=== PATIENT | female | born 1975 | race Caucasian/White ===

== ENCOUNTER → 2019-06-18 | Outpatient (CLI) | payer OTHER ==
--- NOTE | 2019-06-19 14:06 | RADIOLOGY REPORT (SQ) ---
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 RADIONUCLIDE AND DOSE: 11.3 mCi F18 FDG The route of agent administration: Intravenous FASTING BLOOD SUGAR: 88 mg/dl CONTRAST TYPE AND DOSE: No CT contrast given. TECHNIQUE: Blood glucose level was verified. Above dose of FDG was injected intravenously. 2-D seg mented attenuation correction images were obtained from the base of the skull to the midthighs. Nonc ontrast CT images were obtained for attenuation correction and fusion with emission images. CT image s were performed without oral or intravenous contrast and are not sensitive for parenchymal lesions. A series of overlapping emission PET images were obtained. Images reviewed and manipulated at [facility] work station by the radiologist. Images stored on PACS. LIMITATIONS: None. FINDINGS: HEAD AND NECK: No areas of abnormal metabolic activity in the soft tissues of the head and neck. CHEST: Incidental finding of a breast mass in the lower inner quadrant right breast, measuring about 3.5 by 1.2 cm in size, with SUV of 2.3. This probably represents a fibroadenoma. Follow-up bilatera l mammogram and right breast ultrasound recommended ABDOMEN AND PELVIS: No areas of abnormal metabolic activity in the abdomen or pelvis. Expected physi ologic activity is present in the genitourinary system and bowel. In the left adnexum, there is eith er a hydrosalpinx, or 2 adjacent ovarian cysts together measuring 7 x 3 cm in size. These are non me tabolic with SUV of 0.3. No peroneal or vaginal hypermetabolic mass is identified. PROXIMAL LOWER EXTREMITIES: No areas of abnormal metabolic activity in the soft tissues of the lower extremities. BONES: No abnormal metabolic activity in the visualized skeleton. ADDITIONAL CT FINDINGS: No additional significant findings on the noncontrast CT images. OTHER: Liver background activity 1.9 SUV. Blood pool background activity 1.3 SUV. IMPRESSION: No findings worrisome for malignancy. Incidental finding of a probable fibroadenoma in the lower inner quadrant right breast, and left adne xal cysts versus hydrosalpinx without worrisome metabolic increased activity. TECHNICAL DOCUMENTATION: JOB ID: [id number] [employer]- All Rights Reserved Reading location - IP/workstation name: [email or web address]
== END ==
LOC: RAD 15:59
PROVIDERS: ATTEND Family Medicine
DX: C49.9 Malignant neoplasm of connective and soft tissue, unspecified (principal)
CPT/HCPCS: 78815; A9552